=== PATIENT | male | born 1995 | race Two or more races ===

== ENCOUNTER 2022-07-16 20:46 | Emergency (ER) | payer OTHER ==
[~2022-07-16] VITALS: Ht 177.8 cm; Wt 110.7 kg
[2022-07-17] MEDS ORDERED: COZAAR25 MG PO (03:27)
== END 2022-07-17 03:50 ==
LOC: ER 20:46
DX: I10 Essential (primary) hypertension (principal); R07.89 Other chest pain